=== PATIENT | male | born 1960 | race Caucasian/White ===

== ENCOUNTER 2023-11-12 05:51 | Observation (INO) | payer BC, SELFPAY ==
[2023-11-12] VITALS (28 sets, daily range): BP systolic 114–169; BP diastolic 66–111
[2023-11-12] MEDS: ZOFRAN 4 MG IV ×4 (02:18→21:22)
[2023-11-12] MEDS: NSS 500 IV (02:20)
[2023-11-12] MEDS: DILAUDID 1 MG IV (02:21)
[2023-11-12 02:40] LABS: % Basophils 0.4 % (0-2); % Eosinophils 1.1 % (0-6); % Immature Granulocytes 0.3 % (0-0.5); % Lymphocytes 42.5 % (20.5-51.1); % Monocytes 7.8 % (1.7-9.3); % Neutrophils 47.9 % (42.2-75.2); Absolute Eosinophils 0.1 10^3/uL (0-0.7); Absolute Lymphocytes 3.1 10^3/uL (1.2-3.4); Absolute Monocytes 0.6 10^3/uL (0.1-0.6); Absolute Neutrophils 3.5 10^3/uL (1.4-6.5); Hematocrit 36.6 % (39.0-52.0); Hemoglobin 13.2 g/dL (13.0-18.0); Mean Corp Hgb Conc. 36.1 g/dL (33.0-37.0); Mean Corpuscular Volume 88.6 fL (80.0-94.0); Mean Platelet Volume 10.3 fL (7.4-10.4); Nucleated Red Blood Cells % 0 % (-); Platelet Count 205 10^3/uL (130-400); Red Blood Cell Count 4.13 10^6/uL (4.70-6.10); Red Cell Dist. Width 11.9 % (11.5-14.5); White Blood Cell Count 7.2 10^3/uL (4.8-10.8)
[2023-11-12 02:46] LABS: ALT (SGPT) 39 U/L (0-50); AST (SGOT) 66 U/L (17-59); Albumin 3.9 g/dl (3.5-5.0); Alkaline Phosphatase 79 U/L (38-126); Blood Urea Nitrogen 25 mg/dl (9-20); Carbon Dioxide 29 mmol/L (22-30); Chloride 101 mmol/L (98-107); Glucose 113 mg/dl (70-99); Potassium 3.6 mmol/L (3.5-5.1); Sodium 140 mmol/L (135-145); Total Protein 6.1 g/dl (6.3-8.2); eGFR > 60.00
--- NOTE | 2023-11-12 02:46 | ED.GENMED ---
History of Present Illness
General
Chief Complaint: Chest Pain
Source: patient and spouse
Exam Limitations: none
Time Seen by Provider: 11/12/23 02:15
Nursing documentation reviewed up to this point in time: agreed with
Travel History
Have you had any contact with someone who has COVID-19?: No
Do you have any symptoms of coronavirus? Fever > 100 degrees, chills, cough, shortness of breath, sore throat, loss of taste or smell, muscle aches, or headache?: No
History of Present Illness
History of Present Illness:
63-year-old male with past medical history of hypertension, hyperlipidemia who presents to the emergency department accompanied by his from home for evaluation of epigastric pain. Patient reports abrupt onset that woke him from sleep at around
1 AM and has been constant and severe since that time. He reports pain in the epigastric region which radiates towards the chest. Associated with nausea but no vomiting. He denies any shortness of breath. He denies any back pain. He says that
he did have some mild chest pain and nausea/vomiting yesterday that he attributed to a GI bug. He denies any recent fever or chills. No diarrhea. He denies any prior history of abdominal surgeries. says that he always has 'GI issues' and
that he 'is very gassy' but has never had pain to this degree. He has no known history of cardiac issues.
Review of Systems
Review of Systems
All Other Systems: ROS reviewed and negative except as documented in HPI and ROS
Constitutional: Denies fever or chills
EENT: Denies sore throat
Respiratory: Denies cough or trouble breathing
Cardiac: Reports chest pain and diaphoresis; Denies palpitations or syncope
ABD/GI: Reports abdominal pain, nausea and vomiting; Denies diarrhea
: Denies flank pain
Musculoskeletal: Denies neck pain or back pain
Neurological: Denies dizzy, headache, weakness or numbness
Phy Exam
Physical Exam
Physical Exam:
General: Awake, alert, oriented x3; appears uncomfortable clutching his chest/epigastric region
Head: Normocephalic, atraumatic
Eyes: Conjunctiva normal, EOMI, sclera anicteric
Throat: Airway intact, handling secretions
Neck: Trachea midline, supple without meningismus
Lungs: Clear to auscultation bilaterally, no wheezing, rales, rhonchi
Heart: Regular rate and rhythm, no murmurs, gallops, or rubs
Abd: Soft, non distended, mildly tender in the epigastric region
Neuro: Cranial nerves grossly intact, speech fluid
Skin: Pale, diaphoretic
Extremities: No edema in extremities, equal pulses in all extremities
Scores
Heart Failure Risk
Heart Failure Risk Score: Not Applicable
Heart Score for Chest Pain Patients
STEMI patient?: No
History: Moderately Suspicious
ECG: Normal
Age: >45 - <65 years
Risk Factors: 1 or 2 Risk Factors
Troponin: </= Normal Limit
Heart Score for Chest Pain Patients: 3
Heart Score Risk: 2.5% MACE over next 6 weeks
Withdrawal Assessment of Alcohol
Withdrawal Assessment Completed?: Not applicable
Course
Orders/Labs/Results
Orders:
Orders
11/12/23 01:58
Electrocardiogram (*1) Urgent
Reason for Study: Abdominal Pain
EKG- Treatment ONCE
11/12/23 02:14
CMP [Comprehensive Metabolic Panel] Urgent
Complete Blood Count/With Diff Urgent
Lipase Urgent
Troponin I Urgent
11/12/23 02:15
HYDROmorphone [Dilaudid] 1 mg IV NOW STA
Ondansetron Injectable [Zofran] 4 mg IV NOW STA
11/12/23 02:16
0.9% Sodium Chloride 500 ml [Nss] 500 ml IV BOLUS
11/12/23 02:28
CT Chest/abd/pelvis Angio W/wo Urgent
Comment:
Reason For Exam: severe chest/abdominal pain
11/12/23 02:52
HYDROmorphone [Dilaudid] 1 mg IV NOW STA
11/12/23 03:43
Ondansetron Injectable [Zofran] 4 mg IV NOW STA
11/12/23 05:00
Troponin I Urgent
Abnormal Lab Results
11/12/23
02:14
RBC 4.13 L 10^6/uL
(4.70-6.10)
Hct 36.6 L %
(39.0-52.0)
MCH 32.0 H pg
(27.0-31.0)
BUN 25 H mg/dl
(9-20)
Glucose 113 H mg/dl
(70-99)
AST 66 H U/L
(17-59)
Total Protein 6.1 L g/dl
(6.3-8.2)
11/12/23 02:14
11/12/23 02:14
Vital Signs
Initial and Last Documented VS:
Initial Vital Signs
Temp Pulse Resp BP Pulse Ox
36.6 C 76 28 126/72 98
11/12/23 01:59 11/12/23 01:59 11/12/23 01:59 11/12/23 01:59 11/12/23 01:59
Last Documented Vital Signs
Temp Pulse Resp BP Pulse Ox
36.6 C 80 12 147/85 98
11/12/23 01:59 11/12/23 04:00 11/12/23 03:01 11/12/23 04:00 11/12/23 04:00
MDM/Problems Addressed
Differential Diagnosis Includes:
ACS/acute VT, cholecystitis/cholelithiasis, aortic dissection, pancreatitis
MDM/Problems Addressed:
63-year-old male presents for evaluation of abrupt onset epigastric/chest pain associated with nausea that woke him from sleep around 1 AM. He did have some mild chest discomfort and nausea/vomiting yesterday. Vital signs here within normal
limits. Exam as above�he appears generally unwell. His EKG shows no STEMI. Plan to place an IV check labs including a CBC and a CMP, lipase. Check troponins. Provide some IV fluids. Provide pain control, antiemetic. Given abrupt onset and
unwell appearance concern would be for vascular pathology including a dissection given radiation from the abdomen to the chest. Will check CTA of the chest/abdomen/pelvis. Will monitor closely reassess after the above.
Labs reviewed CBC shows no clinically significant abnormalities. CMP shows marginal elevation in the AST otherwise unremarkable. Awaiting troponin and lipase. Patient in CT at present.
Initial troponin undetectable. Lipase normal. CTA of the chest/abdomen/pelvis called back by [facility]: Patient has no signs of an acute aortic dissection or pulmonary embolism; he does have cholelithiasis and gallbladder distention but no
signs of an acute cholecystitis. Cholelithiasis/choledocholithiasis certainly could account for symptoms. He does however have questionable subendocardial hyperenhancement of the left ventricular apex which could be seen with an acute VT. Initial
troponin is undetectable repeat pending; EKG with no concerning changes. Case discussed with cardiology who are reviewing case. Patient having return of nausea/vomiting on reassessment, pain improved however. Will provide repeat dose of Zofran.
Cardiology reviewed case�especially with patient having some symptoms yesterday and undetectable initial troponin acute coronary event seems somewhat unlikely and I tend to agree this does not really fit with my initial clinical impression.
Furthermore no significant coronary calcium on unenhanced CT somewhat goes against ACS. Recommending following up on repeat troponins continue to trend for time being. If repeat troponin detectable will reassess, discussed with cardiology. At this
point will admit to the hospital for continued management of his symptoms which clinically I suspect are related to gallstones but must be ruled out for acute VT. Discussed with hospitalist for admission.
Chronic conditions affecting care:
History of hypertension, hyperlipidemia�higher risk for cardiac disease
*Radiology
Radiology exam reviewed: radiology read reviewed
*Pulse Oximetry
Patient hypoxic: no
*EKG
Interpreted by ED Provider?: Yes
Heart Rate: 76
Rate: normal
Rhythm: sinus
Lima: normal axis
Interval: normal interval
QRS Pattern: normal QRS
Ischemia: no ischemia
*Critical Care Note
Total Time (30-74mins, 75-104mins- exclusive of procedures): Not Applicable
Data Reviewed
Source: patient and spouse
Patient Management
Discussion with other providers: Hospitalist (Discussed with hospitalist) and Principal Engineer (Discussed with cardiology)
ED Attending Note
-
Portions of this chart may have been created with voice recognition software.� Occasional wrong word or��sound alike� substitutions may have occurred due to the inherent limitations of voice recognition software.
Discharge Plan
Departure
Patient Disposition: Admit
Date of Disposition: 11/12/23
Time of Disposition: 04:12
Admit to doctor: Maged
Presentation/result/management discussed w/ accepting MD/DO: Hospitalist
Discharge Problem:
Cholelithiasis, Epigastric pain
Referrals:
Jose R Merrill MD [Family Provider] -
Interventions
Interventions:
*Risk Screen - Suicide Last Done: 11/12/23 02:23
*General Assessment Last Done: 11/12/23 02:23
*Neglect/Abuse Screening Last Done: 11/12/23 02:23
*ED COVID-19 Vaccine History Last Done: 11/12/23 02:23
TJ-[id number]-Vhswuafeke Assessment Last Done: 11/12/23 02:12
ED- Cardiac Assessment Last Done: 11/12/23 02:12
[2023-11-12 02:57] LABS: Troponin I < 0.012 ng/ml
[2023-11-12 03:02] LABS: Lipase 182 U/L (23-300)
[2023-11-12] MEDS: REGLAN 10 MG IV (04:43)
--- NOTE | 2023-11-12 05:45 | HPS.HSE ---
Family Physician
-
Family Physician: Jose R Merrill
Chief Complaint
-
Epigastric Pain
History of Present Illness
Patient is a 63y M with PMH significant for hypertension who presents to ED complaining of epigastric pain. Patient states that he developed N/V/D on Saturday evening. His symptoms seemed to resole by Saturday morning and he felt fairly well
through the day. Around 1 AM today he woke with severe epigastric pain. He could not get comfortable at home and ultimately presented to the ED for evaluation. He had no similar pain last PM. He had minimal nausea this evening and had one
episode of emesis here in the ED. His pain did not improve.
He denies any fevers or chills. No urinary complaints.
He denies any prior history of similar symptoms.
At the time of my examination, patient is resting comfortably and his pain has improved.
Medical History
Past Medical History
Past Medical History: Reports Other
Additional Past Medical History:
Hypertension
Dyslipidemia
Past Surgical History: Reports None and Other
Social History
Tobacco: Non-smoker
Alcohol: None
Drug: None
Personal:
Living: With Family
Family History
Family History: Other (Father: Diverticular Disease Mother: GB Disease Sister: A-Fib)
Allergies / Home Medications
Allergies reflects when Allergies were last updated in [facility].
Home Medications with original date entered in [facility]
Allergy/Medication List:
Allergies
Allergy/AdvReac Type Severity Reaction Status Date / Time
No Known Allergies Allergy Verified 11/12/23 02:03
Home Medications
amlodipine 5 mg tablet 5 mg PO DAILY 11/12/23
atorvastatin 20 mg tablet 20 mg PO DAILY 11/12/23
Review of Systems
-
History Source: Patient
A 12 point ROS was completed and negative except as noted: Yes
Constitutional: Denies Fever, Fatigue or Chills
EENT: Denies Sore Throat
Respiratory: Denies Cough or Trouble Breathing
Cardiac: Reports Chest Pain and Diaphoresis; Denies Palpitations or Syncope
Abdomen/GI: Reports Abdominal Pain, Nausea, Vomiting, Diarrhea, Bloody Stools and Other (Hemorrhoids); Denies Constipated
: Denies Dysuria, Frequency or Flank Pain
Neurological: Denies Dizzy or Headache
Psych: Denies Depression or Anxiety
Physical Exam
Vital Signs
Vital Signs
Temp Pulse Resp BP Pulse Ox
97.8 F 80 12 147/85 98
11/12/23 01:59 11/12/23 04:00 11/12/23 03:01 11/12/23 04:00 11/12/23 04:00
Physical Exam
General: Other (89y M in no acute distress.)
HEENT: Moist mucous membranes and PERRLA
Respiratory: Clear; No Wheezes, Rales or Rhonchi
Cardiac: S1/S2 and Regular Rhythm; No Murmur
GI: Soft, Non Tender, Non Distended and Normal Bowel Sounds
Musculoskeletal: No Clubbing, No Cyanosis and No Edema
Neuro: AO x 3
Laboratory Results
-
11/12/23 02:14
11/12/23 02:14
Laboratory Results
Total Bilirubin 1.0 mg/dl (0.2-1.3) 11/12/23 02:14
AST 66 U/L (17-59) H 11/12/23 02:14
ALT 39 U/L (0-50) 11/12/23 02:14
Alkaline Phosphatase 79 U/L (38-126) 11/12/23 02:14
Troponin I < 0.012 ng/ml 11/12/23 02:14
Lipase 182 U/L (23-300) 11/12/23 02:14
Impression/Plan
-
A/P: Patient is a 63y M with PMH significant for hypertension who presents to ED complaining of epigastric pain.
Epigastric Pain
Symptomatic Cholelithiasis
- Observe overnight for further evaluation and treatment.
- History and objective findings thus far seem most c/w gallstones / GI source of symptoms.
- EKG is unremarkable. Trop negative x 1 set.
- Check additional troponin and follow for any new / recurrent symptoms.
- Cardiology evaluation if troponin increases or other new symptoms develop.
- NPO, IVF support, pain control and antiemetics.
- Surgery evaluation and GI evaluation for symptomatic cholelithiasis.
- CT scan with gallstones with no evidence of GB wall thickening, dilated ducts, etc.
- Check US in the AM for further evaluation.
- Follow for new / recurrent symptoms.
Hemorrhoids
- Patient reports BRBPR fairly regularly with his bowel movements.
- States that he has known hemorrhoids and he has been meaning to get this 'checked out'.
- He has had prior colonoscopy (2019 - medium sized hemorrhoids appreciated).
- GI evaluation as noted above - further work-up likely as an outpatient.
Benign Hypertension
- Stable. Hold amlodipine acutely.
DVT Prophylaxis: SCDs
Code Status: Full
[2023-11-12 06:00] LABS: Troponin I < 0.012 ng/ml
[2023-11-12] MEDS: LR 1000 IV (06:28)
[2023-11-12] MEDS: PROTONIX IV 40 MG IV (08:13)
[2023-11-12] MEDS: NSS (PRESERVATIVE FREE) 10 ML IV (08:13)
--- NOTE | 2023-11-12 09:39 | CON.GS ---
Medical History
-
Chief Complaint: Epigastric pain
History of Present Illness:
Patient is a 63 yo M with a PMH of HTN and HLD who presents with epigastric abdominal pain. Mr. Morrison states that Saturday he acutely developed epigastric abdominal pain. His symptoms initially improved, however, recurred on Saturday night prompting
presentation to the ED. Associated nausea and vomiting. No fevers or chills. He notes some looser stools. He denies any jaundice, pale stools, or tea colored urine. He does note intermittent episodes of nausea and diarrhea every other month.
He denies any prior history of epigastric or RUQ abdominal pain. His pain is focal to the epigastrium and does not radiate to the back. Symptoms are slightly improved since presentation to the ED.
Past Medical History
Past Medical History: HTN and Hypercholesterolemia
Past Surgical History: None
Social History
Tobacco: Non-Smoker
Alcohol: Occasional
Drug: None
Personal:
Living: With Family
Employment: Employed
Family History
Family History: Reviewed & Noncontributory
Allergies / Home Medications
Allergy/AdvReac Type Severity Reaction Status Date / Time
No Known Allergies Allergy Verified 11/12/23 02:03
Medication Instructions Recorded Confirmed Type
amlodipine 5 mg tablet 5 mg PO DAILY 11/12/23 11/12/23 History
atorvastatin 20 mg tablet 20 mg PO DAILY 11/12/23 11/12/23 History
Review of Systems
-
A 10 point review of systems was completed, and was negative except as per HPI.
Physical Exam
Vital Signs
Temp Pulse Resp BP Pulse Ox
98.4 F 66 18 115/77 97
11/12/23 08:10 11/12/23 08:10 11/12/23 08:10 11/12/23 08:10 11/12/23 08:10
11/11/23 11/12/23 11/13/23
06:59 06:59 06:59
Actual Weight 74.2 kg
Body Mass Index (BMI) 0.0
Lab Results
11/12/23 02:14
11/12/23 02:14
WBC 7.2 10^3/uL (4.8-10.8) 11/12/23 02:14
Hgb 13.2 g/dL (13.0-18.0) 11/12/23 02:14
Hct 36.6 % (39.0-52.0) L 11/12/23 02:14
Plt Count 205 10^3/uL (130-400) 11/12/23 02:14
Abs Immat Gran (auto) 0.0 10^3/uL (0-0.05) 11/12/23 02:14
Neutrophils % 47.9 % (42.2-75.2) 11/12/23 02:14
Physical Exam
General: Well Developed, Well Nourished and No Apparent Distress
HEENT: Normocephalic and Anicteric
Respiratory: Non Labored Respirations
Cardiac: Regular Rhythm
GI: Soft, Non Distended, Tender (Minimal epigastric, negative Herrera's sign) and Other (Non-peritoneal)
Skin: Warm and Dry
Neuro: Nonfocal/Grossly Intact
Data Reviewed
-
CT Scan: Image Personally Visualized and interpreted and Report Reviewed by me
Ultrasound: Other (Pending)
Labs: Labs Reviewed by me
Assessment / Plan
-
Patient is a 63 yo M p/w intermittent epigastric abdominal pain.
CT scan imaging demonstrates a distended gallbladder with cholelithiasis within the neck. No significant wall thickening or inflammation. Given the location and intermittent nature of his symptoms, this is likely related to cholelithiasis.
Differential includes gastritis or duodenitis. GI consult noted. US pending.
Tentative plan for a laparoscopic cholecystectomy with possible cholangiogram pending the above. The procedure itself, as well as the risks, benefits, and alternatives was discussed. Specifically, we discussed the risks of bleeding, infection,
injury to surrounding structures (bowel and bile ducts), CBD injury, need for open procedure. Typical postprocedural recovery was discussed. Questions answered.
-- Tentative plan for a laparoscopic cholecystectomy with possible cholangiogram
-- GI consult noted, US pending
-- NPO, IVF
--- NOTE | 2023-11-12 10:17 | CON.GI ---
Addendum entered and electronically signed by Romy Treviño MD 11/12/23 21:41:
I saw and examined the patient.
The EGG BREAKER or PA's note was reviewed and I agree with the note.
Comment: 63-year-old male with history of hypertension, high cholesterol presenting with epigastric pain that woke him up from sleep early this morning, pain was about 8/10 in intensity, no associated nausea, vomiting, fevers or chills. Emergency
room he was noted to have mildly elevated transaminases, mainly AST, abdominal ultrasound showed cholelithiasis and CT of the abdomen showed multiple gallstones with gallbladder distention and adjacent mesenteric inflammatory change suggesting acute
cholecystitis.
Currently patient is status post laparoscopic cholecystectomy.
He reports that his abdominal pain that he came in with is much improved though he has some postprocedure pain.
-Epigastric pain likely related to acute cholecystitis without any evidence of choledocholithiasis given intraoperative cholangiogram was clean.
No further workup from a GI standpoint.
Will sign off, please call back if needed.
Original Note:
Consultation
-
Date/Time Consultation Requested: 11/12/23 @ 06:22
Date/Time Consultation Performed: 11/12/23 @ 11:00
Requesting Provider: Dr. Lynne
Performing Provider: LORY Greer; Dr. Treviño
Reason for Consultation: Gallstones, Hemorrhoids / Rectal Bleeding
Medical History
Chief Complaint / HPI
Chief Complaint: epigastric pain
History of Present Illness:
The patient is a 63-year-old male with a past medical history significant for hypertension, hyperlipidemia, hemorrhoids, who presented to the emergency room with complaints of epigastric pain. We are being asked to evaluate for gallstones and
possible hemorrhoids. The patient reports on Saturday he had developed viral symptoms including nausea, vomiting, and diarrhea. His symptoms had resolved on Saturday but yesterday he developed significant pain to his upper abdomen. This pain was
constant, not improved with rest. He denies any radiation of the pain or effects from meals. He denies any significant nausea or vomiting. He denies any fevers or chills. He denies any prior similar episodes in the past. He denies any history
of gallbladder problems. He does also admit to some intermittent hemorrhoidal bleeding which he was told to follow-up on although he did not do so. He reports very infrequent constipation but does not note that the bleeding is worse during these
times. He otherwise denies any unintentional weight loss, loss of appetite, dysphagia, odynophagia, significant reflux, chest pain, or shortness of breath. Routine labs in the ER showed hemoglobin 13.2, AST 60s, total bilirubin 1.0, ALT 39, alk
phos 79, BUN 25, creatinine 1.1, troponin negative x 2. He underwent CTA of the abdomen and pelvis which showed multiple gallstones and mild gallbladder distention and adjacent mesenteric inflammatory change (other findings as noted below).
Ultrasound imaging of the abdomen was also done showing cholelithiasis with no abnormal gallbladder wall thickening or pericholecystic fluid and a hepatic cyst without suspicious features. No evidence of biliary ductal dilation. He was made
n.p.o., started on PPI, and admitted for further evaluation by GI and general surgery.
Past Medical History
Past Medical History: HTN, Hypercholesterolemia and Other (Hemorrhoids)
Past Surgical History: None
Social History
Tobacco: Non-Smoker
Alcohol: None
Drug: None
Family History
Family History: Reviewed & Not Pertinent
Allergies / Home Medications
Allergy/AdvReac Type Severity Reaction Status Date / Time
No Known Allergies Allergy Verified 11/12/23 02:03
Medication Instructions Recorded
amlodipine 5 mg tablet 5 mg PO DAILY 11/12/23
atorvastatin 20 mg tablet 20 mg PO DAILY 11/12/23
Review of Systems
-
History Source: Patient
Constitutional: Reports No Symptoms
EENT: Reports No Symptoms
Respiratory: Reports No Symptoms
Cardiac: Reports No Symptoms
Abdomen/GI: Reports Abdominal Pain, Nausea, Vomiting and Diarrhea
: Reports No Symptoms
Musculoskeletal: Reports No Symptoms
Skin: Reports No Symptoms
Neurological: Reports No Symptoms
Vital Signs
Temp Pulse Resp BP Pulse Ox
98.4 F 66 18 115/77 97
11/12/23 08:10 11/12/23 08:10 11/12/23 08:10 11/12/23 08:10 11/12/23 08:10
Physical Exam
Exam
General: Well Developed, Well Nourished and No Apparent Distress
HEENT: Normocephalic, Anicteric and Atraumatic
Respiratory: Clear
Cardiac: S1/S2 and Regular Rhythm
GI: Soft, Non Distended, Normal Bowel Sounds and Tender (Midepigastric area)
Rectal: Hemorrhoids (External hemorrhoid, not inflamed or bleeding; internal exam deferred per patient preference)
Musculoskeletal: No Edema
Skin: Warm and Dry
Neuro: Awake, Alert and Oriented
Psych: Calm
Results
WBC 7.2 10^3/uL (4.8-10.8) 11/12/23 02:14
Hgb 13.2 g/dL (13.0-18.0) 11/12/23 02:14
Hct 36.6 % (39.0-52.0) L 11/12/23 02:14
MCV 88.6 fL (80.0-94.0) 11/12/23 02:14
Plt Count 205 10^3/uL (130-400) 11/12/23 02:14
Absolute Neuts (auto) 3.5 10^3/uL (1.4-6.5) 11/12/23 02:14
Sodium 140 mmol/L (135-145) 11/12/23 02:14
Potassium 3.6 mmol/L (3.5-5.1) 11/12/23 02:14
Chloride 101 mmol/L (98-107) 11/12/23 02:14
Carbon Dioxide 29 mmol/L (22-30) 11/12/23 02:14
BUN 25 mg/dl (9-20) H 11/12/23 02:14
Creatinine 1.1 mg/dL (0.7-1.3) 11/12/23 02:14
Calcium 9.0 mg/dl (8.4-10.2) 11/12/23 02:14
Total Bilirubin 1.0 mg/dl (0.2-1.3) 11/12/23 02:14
AST 66 U/L (17-59) H 11/12/23 02:14
ALT 39 U/L (0-50) 11/12/23 02:14
Alkaline Phosphatase 79 U/L (38-126) 11/12/23 02:14
Lipase 182 U/L (23-300) 11/12/23 02:14
Diagnostic Image Results:
11/12/23 US abdomen: IMPRESSION:
1. � Cholelithiasis. No abnormal gallbladder wall thickening or pericholecystic fluid. Negative sonographic Herrera sign.
2. � Hepatic cyst without suspicious features as seen on prior CT.
11/12/23 CTA abdomen/pelvis/chest: IMPRESSION:
1. Multiple gallstones. Mild gallbladder distention and adjacent mesenteric inflammatory change. Findings may be related to acute cholecystitis in the correct clinical setting, consider abdominal ultrasound for further evaluation.
2. No evidence of thoracic or abdominal aortic dissection or aneurysm. Major branches are patent.
3. Hypoenhancement of the subendocardium at the left ventricular apex, best seen on series 501 images 56-62. Please correlate for clinical suspicion and risk factors for myocardial infarction. No significant coronary arterial calcification.
4. Clear lungs.
5. Small fat-containing bilateral inguinal hernias without evidence of incarceration.
Prior GI Procedures:
EGD: none
Colonoscopy: 12/10/2019 Dr. Santamaria: The examined portion of the ileum was normal. One 5 mm adenomatous polyp in the ascending colon, removed with a cold snare. Resected and retrieved. Non-bleeding external and internal hemorrhoids. The examination
was otherwise normal.
Assessment / Plan
-
The patient is a 63-year-old male with a past medical history significant for hypertension, hyperlipidemia, hemorrhoids, who presented to the emergency room with complaints of epigastric pain. We are being asked to evaluate for gallstones and
possible hemorrhoids. Acute onset of viral symptoms with subsequent abdominal pain. US/CT imaging showing gallstones, concern for possible cholecystitis. No biliary dilation. LFT's essentially normal with only mildly elevated ALT. Lipase is normal.
NPO. Started on PPI.
Problem list:
-Epigastric pain
-CT and ultrasound imaging showing gallstones, no biliary dilation
-elevated AST
-hx hemorrhoids, intermittent bleeding
-HTN
-HLD
Recommendations:
-Etiology of abdominal pain likely secondary to gallstones v gastritis v other. Imaging not showing any biliary ductal dilation. No overt heartburn symptoms.
---No role for ERCP at this time
-Continue PPI
-Surgery evaluation for possible lap danay today noted
-Continue n.p.o.
-Repeat LFTs, likely elevated with possible acute cholecystitis
-Large hemorrhoid on external exam, but does not appear inflamed with no evident bleeding. Noted with internal hemorrhoids on colonoscopy in 2020. Can use anusol QHS for 7 days then as needed.
-Will need outpatient follow-up with GI v colorectal for hemorrhoids
-Will follow
-
-
Thank you for consultation and allowing me to participate in the patient's care. Please call the [facility] physician during the after hours with any questions or concerns.
[2023-11-12] MEDS: DILAUDID 0.5 MG IV ×2 (11:23→16:23)
[2023-11-12 11:56] LABS: Troponin I < 0.012 ng/ml
--- NOTE | 2023-11-12 13:24 | W.SUR.PREOP ---
Pre-Operative Surgical Note
-
I have examined this patient prior to the performance of the scheduled procedure.
The patient's condition is unchanged from the time of the current History and
Physical and the patient is able to undergo the scheduled procedure.
--- NOTE | 2023-11-12 14:55 | W.PN.UPDATE ---
Update Note
Progress Note Update
This note serves as supplemental to history and physical already noted and seen by provider this morning. Patient planned to undergo laparoscopic cholecystectomy with possible cholangiogram today. Continue PPI. NPO.
--- NOTE | 2023-11-12 15:34 | W.IMMPOSTOP ---
Addendum entered and electronically signed by Andres Tomlinson MD 11/13/23 07:26:
[facility]#[id number]
Original Note:
Surgical Immed Post Op Note
-
Primary Surgeon: Bushra
Assisting Surgeon: None
Pre-op Diagnosis: Biliary colic
Post-op Diagnosis: Biliary colic
Procedure Performed: Laparoscopic cholecystectomy with IOC
Anesthesia Type: General
Specimen / Cultures:
1. Gallbladder
Estimated Blood Loss: 7 cc
Complications: None
Operative Findings:
1. Distended, soft GB, mild wall thickening, stones within cystic duct
2. Normal stomach and duodenum
3. Critical view of safety
4. IOC negative
[2023-11-12] MEDS: NORMOSOL-R 1000 IV (17:14)
[2023-11-12] MEDS: DILAUDID 0.25 MG IV (17:23)
--- NOTE | 2023-11-12 18:21 | PTCARENOTE ---
Pt received from the PACU via bed. Transport was w/o incident. Pt is AAOx3, HRR, Pt is NSR on court recording monitor, lungs are clear, resp. easy. VSS, Pt is afebrile. Pt with 5 abd Lap sites w/ surgi glue, well approx., no drainage noted. CRISTOBAL. Pt reports
his pain as 2/10 on pain scale and declines pain med at this time. Pt instructed on plan of care, Pt verbalizes understanding of instructions. Call puentes is within reach.
[2023-11-12] MEDS: LR IV (19:27)
[2023-11-12] MEDS: ROXICODONE 5 MG PO (21:21)
[2023-11-12] MEDS: ANUSOL HC 25 MG RECTAL (22:06)
[2023-11-13 02:59] VITALS: BP 142/83
[2023-11-13] MEDS: NORMOSOL-R 1000 IV ×2 (03:17→09:32)
[2023-11-13] MEDS: LR IV ×2 (03:28→11:33)
[2023-11-13 05:46] VITALS: BMI 26.9
[2023-11-13 06:24] LABS: Hematocrit 35.5 % (39.0-52.0); Hemoglobin 12.3 g/dL (13.0-18.0); Mean Corp Hgb Conc. 34.6 g/dL (33.0-37.0); Mean Corpuscular Hgb 31.9 pg (27.0-31.0); Mean Corpuscular Volume 92.2 fL (80.0-94.0); Mean Platelet Volume 11.1 fL (7.4-10.4); Platelet Count 173 10^3/uL (130-400); Red Blood Cell Count 3.85 10^6/uL (4.70-6.10); Red Cell Dist. Width 12.1 % (11.5-14.5)
[2023-11-13 06:53] LABS: ALT (SGPT) 733 U/L (0-50); AST (SGOT) 574 U/L (17-59); Albumin 3.6 g/dl (3.5-5.0); Alkaline Phosphatase 114 U/L (38-126); Blood Urea Nitrogen 15 mg/dl (9-20); Calcium 8.3 mg/dl (8.4-10.2); Carbon Dioxide 26 mmol/L (22-30); Chloride 101 mmol/L (98-107); Direct Bilirubin 0.9 mg/dl (0.0-0.4); Estimated Creatinine Clearance 59 ml/min; Glucose 127 mg/dl (70-99); Potassium 4.3 mmol/L (3.5-5.1); Sodium 136 mmol/L (135-145); Total Bilirubin 2.5 mg/dl (0.2-1.3); Total Protein 5.8 g/dl (6.3-8.2); eGFR > 60.00
[2023-11-13 07:01] VITALS: BP 133/81
[2023-11-13] MEDS: PROTONIX IV 40 MG IV (09:27)
[2023-11-13] MEDS: TYLENOL 650 MG PO ×2 (09:27→16:09)
[2023-11-13] MEDS: NSS (PRESERVATIVE FREE) 10 ML IV (09:27)
[2023-11-13 11:30] VITALS: BP 143/92
--- NOTE | 2023-11-13 12:01 | CM ---
Reviewed chart, met with patient and his who was at bedside to obtain information for assessment. Patient stated that he lives with his in a two story home with 5 steps to get in. Patient reported no difficulty with steps.
Patient described himself as independent with his ADLs, personal care, dressing, bathing and toileting. He ambulates without device. He denied any DME at home except for an old cpap. 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
and do laundry. 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
He has never had VN services nor has he been to a SNF in the past.
Patient uses [facility] for all of his medications and he has a prescription plan. His PCP is Dr. Jose R Merrill.
Patient stated that he feels physically at baseline, he is still in some pain but does not anticipate that there will be any needs for CM dept at discharge.
Plan: Case management will continue to follow and assist with discharge planning. Patient would like to return home when he is medically cleared for discharge.
--- NOTE | 2023-11-13 12:08 | W.PN.GS2 ---
Addendum entered and electronically signed by Andres Tomlinson MD 11/13/23 14:16:
Labs with continued rise in bilirubin and LFTs. Patient remains clinically improved with mild bloating. No worsening abdominal pain, nausea, vomiting, or fevers. Plan for continued monitoring in the hospital setting. Repeat labs tomorrow. GI
alerted for the potential need for ERCP. On re-review of his operative cholangiogram, he may have some small remaining sludge or stones in the more proximal CBD. Patient and family updated.
Original Note:
Today's Communication / Plan
-
-- Fulls
-- Repeat CMP this afternoon
Assessment / Plan
-
Patient is a 63 yo M p/w biliary colic POD#1 s/p laparoscopic cholecystectomy with IOC
Preoperative symptoms have improved. Afebrile and hemodynamically stable. Labs notable for elevation in bilirubin and LFTs. Difficult to discern clinical significance given his symptomatic improvement. Possible that these are related to passage
of small stones and debris, as previously noted his preoperative symptoms were severe epigastric pain that did not classically correlate with gallbladder issues. Plan for repeat labs this afternoon. If labs trending down and symptoms remain
improved, would be okay for discharge later today versus tomorrow. If labs continue to be elevated plan to monitor in the hospital and repeat tomorrow, may need to reengage GI.
-- Fulls
-- Pain control: Tylenol, Toradol, Oxycodone
-- Lovenox for DVT
-- PPI for GI
-- Repeat CMP this afternoon
Subjective Data
-
Date of Service: November 13, 2023
Pain significantly improved and different from preop. Reports some bloating sensation. No nausea or vomiting. No fevers.
Objective Data
-
Intake and Output
11/12/23 11/13/23 11/14/23
06:59 06:59 06:59
Intake Total 2130 / 2130
Output Total 1250 / 1250
Balance 880 / 880
Intake:
Oral fluids 480 / 480
IV fluids (Total) 1650 / 1650
Normosol 450 / 450
Output:
Urine, Voided 1250 / 1250
Other:
Number of approximated MODERATE 3 1
amounts of urine
Vital Signs
Temp Pulse Resp BP Pulse Ox
98.3 F 70 18 143/92 98
11/13/23 11:30 11/13/23 11:30 11/13/23 11:30 11/13/23 11:30 11/13/23 11:30
Lab Results
11/13/23 05:27
Calcium 8.3 mg/dl (8.4-10.2) L 11/13/23 05:27
Total Bilirubin 2.5 mg/dl (0.2-1.3) H D 11/13/23 05:27
Direct Bilirubin 0.9 mg/dl (0.0-0.4) H 11/13/23 05:27
AST 574 U/L (17-59) H* 11/13/23 05:27
ALT 733 U/L (0-50) H* 11/13/23 05:27
Alkaline Phosphatase 114 U/L (38-126) 11/13/23 05:27
Total Protein 5.8 g/dl (6.3-8.2) L 11/13/23 05:27
Albumin 3.6 g/dl (3.5-5.0) 11/13/23 05:27
Physical Exam
-
Gen; NAD
Abd: soft, appropriately tender, ND, non-peritoneal, incisions c/d/i - no erythema, ecchymosis or drainage
[2023-11-13 12:24] LABS: AST (SGOT) 609 U/L (17-59); Alkaline Phosphatase 136 U/L (38-126); Blood Urea Nitrogen 16 mg/dl (9-20); Calcium 8.6 mg/dl (8.4-10.2); Carbon Dioxide 24 mmol/L (22-30); Chloride 101 mmol/L (98-107); Estimated Creatinine Clearance 65 ml/min; Glucose 101 mg/dl (70-99); Sodium 137 mmol/L (135-145); Total Protein 6.2 g/dl (6.3-8.2); eGFR > 60.00
[2023-11-13 12:33] LABS: ALT (SGPT) 870 U/L (0-50)
--- NOTE | 2023-11-13 13:25 | W.PN.HOSP.TC ---
Today's Communication/Plan
-
CLD
Repeat CMP
Assessment / Plan
Assessment / Plan
Physical Exam
General: Other (89y M in no acute distress.)
HEENT: Moist mucous membranes and PERRLA
Respiratory: Clear; No Wheezes, Rales or Rhonchi
Cardiac: S1/S2 and Regular Rhythm; No Murmur
GI: Soft, Non Tender, Non Distended and Normal Bowel Sounds
Musculoskeletal: No Clubbing, No Cyanosis and No Edema
Neuro: AO x 3
A/P:� Patient is a 63y M with PMH significant for hypertension who presents to ED complaining of epigastric pain.
Epigastric Pain
Symptomatic Cholelithiasis
�- CT scan with gallstones with no evidence of GB wall thickening, dilated ducts, etc.
�- POD#1�s/p laparoscopic cholecystectomy with IOC
-Preoperative symptoms have improved although elevated bili's, LFTs
� Repeat CMP later on today
� If labs continue to be elevated, similar symptoms may need to reengage GI
� Full liquids for now
� PPI
� Pain control
#Transaminitis
� Possibly secondary to passing of any stones, debris's
� Repeat CMP later on this afternoon
� May need to reengage GI if continued to be elevated, similar pain
Hemorrhoids
�- Patient reports BRBPR fairly regularly with his bowel movements.
�- States that he has known hemorrhoids and he has been meaning to get this 'checked out'.
�- He has had prior colonoscopy (2019 - medium sized hemorrhoids appreciated).
�- GI evaluation as noted above - further work-up likely as an outpatient.
Benign Hypertension
�- Stable.� Hold amlodipine acutely.
DVT Prophylaxis:, Lovenox
Code Status:� Full
Anticipated Discharge: Within 24 hours
Subjective/Interval History
-
Date of Service: November 13, 2023
Tolerated laparoscopic cholecystectomy yesterday, preoperative symptoms improved
Objective Data
-
Labs:
Laboratory Results
11/13/23 11/13/23
05:27 11:11
WBC 8.0
Hgb 12.3 L
Hct 35.5 L
Plt Count 173
Sodium 136 137
Potassium 4.3 4.0
Chloride 101 101
Carbon Dioxide 26 24
BUN 15 16
Creatinine 1.1 1.0
Glucose 127 H 101 H
Calcium 8.3 L 8.6
Total Bilirubin 2.5 H D 3.0 H
AST 574 H* 609 H*
ALT 733 H* 870 H*
Alkaline Phosphatase 114 136 H
Vital Signs:
Vital Signs
Temp Pulse Resp BP Pulse Ox
98.3 F 70 18 143/92 98
11/13/23 11:30 11/13/23 11:30 11/13/23 11:30 11/13/23 11:30 11/13/23 11:30
I&O
11/12/23 11/13/23 11/14/23
06:59 06:59 06:59
Intake Total 2130 / 2130
Output Total 1250 / 1250
Balance 880 / 880
Review of Systems
-
History Source: Patient
All other systems: Not reviewed unless documented
Data Reviewed
-
CT Scan: Image personally visualized and interpreted and Report Reviewed by me
Labs: Labs Reviewed by me
[2023-11-13 15:25] VITALS: BP 148/87
[2023-11-13] MEDS: TORADOL 10 MG IV (18:08)
[2023-11-13] MEDS: LOVENOX 40 MG SC (18:09)
[2023-11-13 19:25] VITALS: BP 127/80
[2023-11-13] MEDS: ANUSOL HC 25 MG RECTAL (20:43)
[2023-11-13] MEDS: LR 1000 IV (20:43)
[2023-11-13] MEDS: NORMOSOL-R IV (23:03)
[2023-11-13 23:30] VITALS: BP 117/82
[2023-11-14 03:25] VITALS: BP 148/89
[2023-11-14] MEDS: ZOFRAN 4 MG IV (04:27)
[2023-11-14] MEDS: TORADOL 10 MG IV (04:27)
[2023-11-14 06:00] VITALS: BMI 26.7
[2023-11-14 06:36] LABS: Hematocrit 33.5 % (39.0-52.0); Hemoglobin 11.6 g/dL (13.0-18.0); Mean Corp Hgb Conc. 34.6 g/dL (33.0-37.0); Mean Corpuscular Hgb 31.6 pg (27.0-31.0); Mean Corpuscular Volume 91.3 fL (80.0-94.0); Mean Platelet Volume 10.8 fL (7.4-10.4); Platelet Count 145 10^3/uL (130-400); Red Blood Cell Count 3.67 10^6/uL (4.70-6.10); Red Cell Dist. Width 12.3 % (11.5-14.5); White Blood Cell Count 6.4 10^3/uL (4.8-10.8)
[2023-11-14 07:12] LABS: ALT (SGPT) 742 U/L (0-50); AST (SGOT) 476 U/L (17-59); Albumin 3.4 g/dl (3.5-5.0); Alkaline Phosphatase 174 U/L (38-126); Blood Urea Nitrogen 11 mg/dl (9-20); Calcium 8.1 mg/dl (8.4-10.2); Carbon Dioxide 28 mmol/L (22-30); Chloride 107 mmol/L (98-107); Estimated Creatinine Clearance 65 ml/min; Glucose 82 mg/dl (70-99); Potassium 4.2 mmol/L (3.5-5.1); Sodium 137 mmol/L (135-145); Total Bilirubin 1.7 mg/dl (0.2-1.3); Total Protein 5.4 g/dl (6.3-8.2); eGFR > 60.00
[2023-11-14 07:35] VITALS: BP 144/87
--- NOTE | 2023-11-14 08:00 | W.PN.GS2 ---
Today's Communication / Plan
-
-- Low fat diet
-- Home medications
-- OK for DC with outpatient labs, GI updated and on board
Assessment / Plan
-
Patient is a 63 yo M p/w biliary colic POD#2 s/p laparoscopic cholecystectomy with IOC
Preoperative symptoms have improved. Afebrile and hemodynamically stable. Labs notable for elevation in bilirubin and LFTs, trending down this AM. Most likely passed stone versus bump from pre-op versus retained debris. Unlikely leak given
overall clinical improvement. Discussed case with GI. Plan for DC with outpatient repeat CMP. Patient instructed that if he has worse pain, nausea, fevers, or jaundice to return to ED and will need ERCP. All questions answered.
-- Low fat diet
-- Pain control: Tylenol, Toradol, Oxycodone
-- HLIV
-- Home medications
-- Lovenox for DVT
-- PPI for GI
-- OK for DC with outpatient labs, GI updated and on board
Subjective Data
-
Date of Service: November 14, 2023
Reports feeling improved, less pain and bloating. No nausea or vomiting. Passing flatus. No fevers.
Objective Data
-
Intake and Output
11/13/23 11/14/23 11/15/23
06:59 06:59 06:59
Intake Total 2130 / 2130 2280 / 2280
Output Total 1250 / 1250
Balance 880 / 880 2280 / 2280
Intake:
Oral fluids 480 / 480 1320 / 1320
IV fluids (Total) 1650 / 1650 960 / 960
Normosol 450 / 450
Output:
Urine, Voided 1250 / 1250
Other:
Number of approximated MODERATE 3 3
amounts of urine
Vital Signs
Temp Pulse Resp BP Pulse Ox
98.2 F 77 18 148/89 97
11/14/23 03:25 11/14/23 03:25 11/14/23 03:25 11/14/23 03:25 11/14/23 03:25
Lab Results
11/14/23 05:43
11/14/23 05:43
Calcium 8.1 mg/dl (8.4-10.2) L 11/14/23 05:43
Total Bilirubin 1.7 mg/dl (0.2-1.3) H D 11/14/23 05:43
Direct Bilirubin 0.9 mg/dl (0.0-0.4) H 11/13/23 05:27
AST 476 U/L (17-59) H 11/14/23 05:43
ALT 742 U/L (0-50) H* 11/14/23 05:43
Alkaline Phosphatase 174 U/L (38-126) H 11/14/23 05:43
Total Protein 5.4 g/dl (6.3-8.2) L 11/14/23 05:43
Albumin 3.4 g/dl (3.5-5.0) L 11/14/23 05:43
Physical Exam
-
Gen: NAD
Abd: soft, minimal incisional tenderness at epigastrium, ND, non-peritoneal, incisions c/d/i - no erythema, ecchymosis or drainage
[2023-11-14] MEDS: NSS (PRESERVATIVE FREE) 10 ML IV (08:23)
[2023-11-14] MEDS: LIPITOR 20 MG PO (08:23)
[2023-11-14] MEDS: PROTONIX IV 40 MG IV (08:23)
[2023-11-14] MEDS: NORVASC 5 MG PO (08:23)
--- NOTE | 2023-11-14 10:40 | W.PN.HOSP.TC ---
Addendum entered and electronically signed by Tee Geller MD 11/17/23 15:20:
[id number]
Original Note:
Today's Communication/Plan
-
Low fat diet
CMP with surgery outpatient
Anusol 7 days total
Assessment / Plan
Assessment / Plan
Physical Exam
General: Other (89y M in no acute distress.)
HEENT: Moist mucous membranes and PERRLA
Respiratory: Clear; No Wheezes, Rales or Rhonchi
Cardiac: S1/S2 and Regular Rhythm; No Murmur
GI: Soft, Non Tender, Non Distended and Normal Bowel Sounds
Musculoskeletal: No Clubbing, No Cyanosis and No Edema
Neuro: AO x 3
A/P:� Patient is a 63y M with PMH significant for hypertension who presents to ED complaining of epigastric pain.
Epigastric Pain
Symptomatic Cholelithiasis
�- CT scan with gallstones with no evidence of GB wall thickening, dilated ducts, etc.
�- POD#2�s/p laparoscopic cholecystectomy with IOC
-Preoperative symptoms have improved although elevated bili's, LFTs
�LFTs trending down
� Advance to Low Fat Diet
� Pain control
-F/u CMP outpatient with surgery
#Transaminitis
� Possibly secondary to passing of any stones, debris's
� Improving
-F/u CMP/LFTs outpatient with surgery
Hemorrhoids
�- Patient reports BRBPR fairly regularly with his bowel movements.
�- States that he has known hemorrhoids and he has been meaning to get this 'checked out'.
�- He has had prior colonoscopy (2020 - medium sized hemorrhoids appreciated).
�- GI evaluation as noted above - further work-up likely as an outpatient.
Benign Hypertension
resume bp meds
DVT Prophylaxis:, Lovenox
Code Status:� Full
More than 30 minutes spent in discharge including
Final examination of the patient
Summarizing hospital stay
Instructions for continuing care to all relevant caregivers
Preparation of discharge records, prescriptions, and referral forms
Total time spent (35 in minutes):
Anticipated Discharge: Today
Subjective/Interval History
-
Date of Service: November 14, 2023
No acute events
Objective Data
-
Labs:
Laboratory Results
11/14/23
05:43
WBC 6.4
Hgb 11.6 L
Hct 33.5 L
Plt Count 145
Sodium 137
Potassium 4.2
Chloride 107
Carbon Dioxide 28
BUN 11
Creatinine 1.0
Glucose 82
Calcium 8.1 L
Total Bilirubin 1.7 H D
AST 476 H
ALT 742 H*
Alkaline Phosphatase 174 H
Vital Signs:
Vital Signs
Temp Pulse Resp BP Pulse Ox
97.8 F 72 18 144/87 97
11/14/23 07:35 11/14/23 07:35 11/14/23 07:35 11/14/23 07:35 11/14/23 03:25
I&O
11/13/23 11/14/23 11/15/23
06:59 06:59 06:59
Intake Total 2130 / 2130 2280 / 2280
Output Total 1250 / 1250
Balance 880 / 880 2280 / 2280
Review of Systems
-
History Source: Patient
All other systems: Not reviewed unless documented
Data Reviewed
-
CT Scan: Image personally visualized and interpreted and Report Reviewed by me
Labs: Labs Reviewed by me
--- NOTE | 2023-11-14 10:48 | W.DS.TRANS ---
DC Summary - [employer]
-
Discharge Instructions:
Discharge Diagnosis/Procedures Biliary colic s/p laparoscopic cholecystectomy
with intraoperative cholangiogram
Diet Low Fat
Activity No strenuous activity
Additional Activity No heavy lifting (>20 lbs) or strenuous
activities for 2 weeks postoperatively
Driving Restrictions No driving if too sore or taking narcotics
Bathing Restrictions OK to Shower
Blood Work Outpatient labs/CMP tomorrow (11/15), call General
Surgery office if issues
Wound Care Keep incisions clean and dry. Glue will flake
off in 2 to 3 weeks. Stitches will dissolve.
Instructions:
Stand-Alone Forms:
Changes to Home Medications: Yes
Discharge Medications:
DC Medications w/original date entered in [facility]
amlodipine 5 mg tablet 5 mg PO DAILY Blood Pressure 11/12/23
atorvastatin 20 mg tablet 20 mg PO DAILY High Cholesterol 11/12/23
acetaminophen 325 mg tablet 650 mg PO Q4HPRN PRN mild pain #1 tab 11/14/23
hydrocortisone acetate 25 mg rectal suppository 25 mg KS HS PRN hemorrhoids 7 days #20 ea 11/14/23
ibuprofen 200 mg tablet 400 - 600 mg PO Q6HPRN PRN moderate pain #1 tab 11/14/23
oxycodone 5 mg tablet 5 mg PO Q4HPRN PRN breakthrough/severe pain #5 tabs 11/14/23
Home Medication Changes
acetaminophen 325 mg tablet 650 mg PO Q4HPRN PRN mild pain #1 tab 11/14/23
hydrocortisone acetate 25 mg rectal suppository 25 mg KS HS PRN hemorrhoids 7 days #20 ea 11/14/23
ibuprofen 200 mg tablet 400 - 600 mg PO Q6HPRN PRN moderate pain #1 tab 11/14/23
Pending Results: No
[2023-11-14 11:15] VITALS: BP 134/85
--- NOTE | 2023-11-14 11:36 | CM ---
MD entered order for discharge.
Spoke with patient and in room .
Observation letter explained , all questions answered , signed on chart.
Pt said he was ready for discharge.
Offered VN he declined need.
Melida will drive him home.
PLAN Home no needs
== END 2023-11-14 12:53 | disposition home or self-care (01) ==
LOC: 2 SOUTH 05:51
PROVIDERS: Emergency Medicine; ADMITTING PHYSICIAN Hospitalist; ATTENDING PHYSICIAN Internal Medicine; CONSULT PHYSICIAN Internal Medicine Gastroenterology; CONSULT PHYSICIAN Surgery; EMERGENCY PHYSICIAN Emergency Medicine; FAMILY PHYSICIAN Family Medicine
DX: K80.12 Calculus of gallbladder with acute and chronic cholecystitis without obstruction (principal); R07.9 Chest pain, unspecified; I10 Essential (primary) hypertension; E78.5 Hyperlipidemia, unspecified; R10.13 Epigastric pain; K64.9 Unspecified hemorrhoids; E78.00 Pure hypercholesterolemia, unspecified; K76.0 Fatty (change of) liver, not elsewhere classified; K44.9 Diaphragmatic hernia without obstruction or gangrene; K40.20 Bilateral inguinal hernia, without obstruction or gangrene, not specified as recurrent; K76.89 Other specified diseases of liver
CPT/HCPCS: 47563; 88304; 71275; 74174; 74300; 76000; 76700; 80053; 82248; 83690; 84484; 85025; 85027; 93005; 96361; 96374; 96375; 96376; 99285; G0378; Q9967

== ENCOUNTER → 2024-12-02 14:46 | Outpatient (REF) | payer OTHER, SELFPAY | LOC: HWRAD 14:46 | PROVIDERS: ATTENDING PHYSICIAN Physician Assistant Medical | DX: M79.662 Pain in left lower leg (principal) | CPT/HCPCS: 93971 ==